=== PATIENT | male | born 1940 | race Caucasian/White ===

== ENCOUNTER 2017-04-20 15:00 | Inpatient (IN) | payer MEDICARE, BC ==
[~2017-04-20] VITALS: Ht 172.7 cm; Wt 67.0 kg
--- NOTE | ~2017-04-20 | CON ---
PATIENT'S NAME: AFUA ERAZO [facility] AGE: 76 Y [address] ROOM: [place] [address] LOCATION: [facility] ADMIT DATE: 04/20/2017 Consultation DISCHARGE DATE: FAMILY PHYSICIAN: Brian Aguayo MD ATTENDING PHYSICIAN: SERA RAYMUNDO REFERRING PHYSICIAN: Anyi Sung MD Consult for Dr. Raymundo. This pleasant 76-year-old gentleman who is referred for [facility] rehab evaluation, admitted on 04/20/2017, with history of falling, hitting his head. He probably lost his consciousness for may be 20 seconds or so. When he woke up, took him to the local emergency room next morning, he did not want to go to the emergency room the same day. He has slurred speech and some weakness on the left side. He had been evaluated at the local hospital. CT scan showed right-sided thalamic stroke. He has medical history of COPD and on 2 L of oxygen and at night 3 L of oxygen constant. Hypertension. Alcohol use. He drinks regularly at least 3 drinks a night of hard liquor. At the present time, he is alert and oriented. He tells me that he does not smoke anymore. Follows instructions well. No facial droop. No neglect. He does see well, but denied any visual difficulties. He has very little headache if any. No double vision. Attends to both sides of the visual field. Cranial nerves 2 through 12 are within normal limits. Tongue and soft palate are moving symmetrical. He has a little bit wobbly because of the weakness of the left lower extremity when he is not supported. Muscle strength is within normal limits on the right upper and lower extremity, about 4- on the left upper and lower extremity. Deep tendon reflexes are present and equal throughout. He has good bowel and bladder control. His speech is clear and not wet. VITAL SIGNS: Blood pressure 161/78, temperature 97.9, pulse 57, and respiration rate 18. He is 5 feet 8 inches tall and weighs 66.5 kg. PATIENT'S NAME: AFUA ERAZO [facility] AGE: 76 Y [address] ROOM: [place] [address] LOCATION: [facility] ADMIT DATE: 04/20/2017 Consultation DISCHARGE DATE: FAMILY PHYSICIAN: Brian Aguayo MD ATTENDING PHYSICIAN: SERA RAYMUNDO He is controlling his bowel and bladder well. MEDICATIONS: He is on the following medications. 1. Aspirin. 2. Lipitor. 3. Dulera. 4. Deltasone. 5. Tylenol. 6. Protonix. 7. Albuterol. ASSESSMENT AND PLAN: At the present time, he ambulated with a front-wheeled walker and oxygen at 3 L with nasal cannula following and he went up to 300 feet with minimum assistance and some cuing for guiding to turn. I feel this gentleman is doing well and he has shown good improvement. If he continues to do so he can go home. I will continue his PT and OT which has been already initiated. I would like him not to drive until he is reevaluated and not to operate any mechanical device until he is re-evaluated. I would like to see him on outpatient basis in my office in 2 weeks. All the above was explained to his . I had also requested him not to drink for the time being. Thank you for this referral. I will follow alongside with you and if he is not doing well to go home, I will re-evaluate for rehab admission. EL LOUIS MD WMS/modl /[id number] d: 04/21/17 1053 t: 04/22/17 0711, CONSULTATION REPORT
--- NOTE | ~2017-04-20 | ENPV ---
Carotid Duplex Study Demographics Patient Name AFUA ERAZO Date of Study 04/21/2017 Patient Number [id number] Gender Male Date of 1940 Age 76 Visit Number [id number] Height 68 Accession Number [id number] Weight 155 Referring Breanne Howard Interpreting Christiano Pruett MD Physician Physician Physician Ordering Breanne Howard Rolloff Driver Physician Galley Hand Marcos Mcdonald, Jj Roblero Conclusions Summary The Bilateral proximal internal carotid artery has mild, 1-39%, stenosis by heterogeneous plaque. The right vertebral artery is antegrade. The left vertebral artery is antegrade with an abnormal Doppler waveform. There is a >50% stenosis noted in the left subclavian artery. Procedure Type of Study: Cerebral:Carotid, Carotid Doppler Bilateral. Indications for Study:Stroke. Appropriate Use Criteria:9 Blood Pressure:Right arm 153/73 mmHg.Left arm 154/80 mmHg. Patient Status:Routine. Study Location:Inpatient Portable. Technical Quality:Adequate visualization. Velocities are measured in cm/s ; Diameters are measured in cm Carotid Right Measurements Carotid Left Measurements + +--------+--------+ + + + +--------+ --------+ + + !Location !PSV !EDV !Angle !%Stenosis ! !Location !PSV ! EDV !Angle !%Stenosis ! + +--------+--------+ + + + +--------+ --------+ + + !Prox CCA !102 !13 !48 ! ! !Prox CCA !142 ! 15 !60 ! ! + +--------+--------+ + + + +--------+ --------+ + + !Dist CCA !72 !10 !60 ! ! !Dist CCA !82 ! 13 !60 ! ! + +--------+--------+ + + + +--------+ --------+ + + !Prox ICA !49 !12 !58 !1-39% ! !Prox ICA !68 ! 16 !60 !1-39% ! + +--------+--------+ + + + +--------+ --------+ + + !Dist ICA !80 !19 !50 ! ! !Dist ICA !64 ! 12 !36 ! ! + +--------+--------+ + + + +--------+ --------+ + + !Prox ECA !128 ! !58 ! ! !Prox ECA !127 ! 14 !48 ! ! + +--------+--------+ + + + +--------+ --------+ + + !Vertebral !42 !10 !60 ! ! !Vertebral !44 ! 10 !60 ! ! + +--------+--------+ + + + +--------+ --------+ + + !Subclavian !110 ! ! ! ! !Subclavian !299 ! ! ! ! + +--------+--------+ + + + +--------+ --------+ + + - There is antegrade vertebral flow noted on the right side. - There is antegrade verte bral flow noted on the left side. - Add'l Measurements:ICAPSV/CCAPSV 0.78.ICAEDV/CCAEDV 1.49. - Add'l Measurements:ICAPS V/CCAPSV 0.48.ICAEDV/CCAEDV 1.07. Signature dtt: CALIXTO WILBURN dtniru: 04/21/17 0847 Physician Self Edit
--- NOTE | ~2017-04-20 | HP ---
PATIENT'S NAME: REINIER HAILE [facility] AGE: 76 Y [address] ROOM: [id number] [place] [address] LOCATION: [facility] ADMIT DATE: 04/20/2017 History & Physical DISCHARGE DATE: 04/22/2017 FAMILY PHYSICIAN: Brian Aguayo MD ATTENDING PHYSICIAN: Stefan Raymundo DATE OF SERVICE: The patient was referred by Sulaiman Oliveros of [facility]. REASON FOR REFERRAL: Stroke. PATIENT IDENTIFICATION: Mr. Reinier Haile is a 76-year-old gentleman. PRESENTING COMPLAINT: Confusion and slurred speech. HISTORY OF PRESENT ILLNESS: The patient began to complain of slurred speech around 10 p.m. on April 19, 2017. He was sitting in a chair and fell down hitting his head, followed by slurred speech and weakness on the left side of his body. He did not seek medical attention initially, but eventually, he presented to [facility] on the morning of April 20, 2017. The patient had a head CT scan performed, which showed a right thalamic stroke. I was contacted to accept the patient and transfer to a higher level of medical care. PAST MEDICAL HISTORY: Significant for 1. End-stage COPD. The patient is on 3 L of oxygen at home. 2. He also has hypertension. CURRENT MEDICATIONS: Please see chart. ALLERGIES: NO KNOWN DRUG ALLERGIES. SOCIAL HISTORY: The patient lives in [place] with his . He quit smoking in 1997. REVIEW OF SYSTEMS: A 10-point review of systems was carried out. The only abnormal findings are as described in the history of present illness. PATIENT'S NAME: REINIER HAILE [facility] AGE: 76 Y [address] ROOM: [id number] [place], [place] [address] LOCATION: [facility] ADMIT DATE: 04/20/2017 History & Physical DISCHARGE DATE: 04/22/2017 FAMILY PHYSICIAN: Brian Aguayo MD ATTENDING PHYSICIAN: Stefan Raymundo PHYSICAL EXAMINATION: On examination, VITAL SIGNS: Blood pressure was 180/82 and pulse rate was 72. NEUROLOGICAL: Speech is clear and lucid. Cranial Nerves: No facial droop was seen. Cranial nerves are otherwise normal. On motor examination, the patient has normal strength in all the major muscle groups of his upper and lower extremities bilaterally. Gait: Not tested. CARDIOVASCULAR SYSTEM: Heart sounds are present. RESPIRATORY SYSTEM: The patient is not short of breath at bedside. EXTREMITIES: No cyanosis or clubbing. SKIN: No skin rashes or skin masses. REVIEW OF IMAGING STUDIES: The patient has had a head CT performed in [place] on April 20, 2017. The head CT shows an 18 x 10 mm region of decreased density involving the right thalamus suspicious for an [id number] stroke. ASSESSMENT: A 76-year-old gentleman with confusion and slurred speech. Imaging studies show a right thalamic stroke. MEDICAL DECISION MAKING: The patient is being admitted for medical management. At this point, there is no indication for neurosurgical intervention. I have consulted the hospitalist to see the patient and assist with his medical management. Neurology will also be consulted to assist with the patient's management. I will follow the patient while he is in hospital. LABORATORY INVESTIGATIONS: Sodium was 140, potassium was 4.0, glucose was 125, BUN was 20, and creatinine was 0.95. White count is 12.4, hemoglobin is 15.5, and platelets are 233. MD REJI MCCANN/jocelyn /[id number] D: 311 T: 626 HISTORY & PHYSICAL
--- NOTE | ~2017-04-20 | CON ---
PATIENT'S NAME: AFUA HAILE [facility] AGE: 76 Y [address] ROOM: [id number] [place], [place] [address] LOCATION: GICU ADMIT DATE: 04/20/2017 Consultation DISCHARGE DATE: 04/22/2017 FAMILY PHYSICIAN: Brian Aguayo MD ATTENDING PHYSICIAN: Stefan Raymundo DATE OF CONSULTATION: 04/21/2017 REFERRING PHYSICIAN: Anyi Sung MD TIME SEEN: 7:00 p.m. HISTORY OF PRESENT ILLNESS: Mr. Haile is a 76-year-old male patient with a history of mild hypertension as well as gout and hyperlipidemia. The patient was a past smoker and has end- stage COPD, but otherwise has fairly good health practices and does not have necessarily active issues for stroke risk factors. The patient states that he developed slurring of speech and sudden onset of weakness on the 20 of April at 10:00 p.m., and the patient was also experiencing some subtle left-sided weakness as well as some mild numbness. Initially, presented to the hospital and CAT scan was performed, which showed evidence for a right-sided thalamic stroke and he was transferred to this hospital for further care. A MRI was done to back up the evidence for the stroke, and the MRI does show approximately 1.7 x 1.2 cm stroke located clearly into the right thalamic region. This is fed by penetrated branches off the right MCA distribution and likely is consistent with a large lacunar stroke. By the time I saw the patient, he was doing quite well. He had no focal weakness that I could notice. He did not have any trouble, problems with chewing or swallowing. At no time did he have any problem with identifying objects nor did he have any persistent slurring of speech and he had no language deficits. Denied any headaches. He denied any problems with shortness of breath or palpitations. He has remained on telemetry monitoring during the course of his stay here in the hospital of greater than 48 hours and no evidence of atrial fibrillation or any abnormalities or any arrhythmia has been seen. The patient has no complaints currently and is planning to complete rehab at his home. I discussed today the nature of the patient's lacunar stroke with the and we went through his current medications and I made some suggestions. PAST MEDICAL HISTORY: History of COPD, hypertension, hyperlipidemia. He is not on any hyperlipidemic medication prior to coming to this hospital. MEDICATIONS: Currently include, 1. Ipratropium bromide/albuterol 1 inhalation q.4 hours p.r.n. PATIENT'S NAME: AFUA HAILE [facility] AGE: 76 Y [address] [place]OM: [id number] [address] LOCATION: GICU ADMIT DATE: 04/20/2017 Consultation DISCHARGE DATE: 04/22/2017 FAMILY PHYSICIAN: Brian Aguayo MD ATTENDING PHYSICIAN: Stefan Raymundo 2. Multivitamin daily. 3. Lactobacillus 1 tablet p.o. daily. 4. Calcium carbonate 250 mg tablet daily. 5. Ascorbic acid 1000 mg daily. 6. Allopurinol 300 mg p.o. daily. 7. Fluticasone propionate spray to each nostril daily. 8. Aspirin started in this hospital 81 mg daily. 9. Atorvastatin 40 mg p.o. q.h.s. started in this hospital. 10. Prednisone 10 mg p.o. daily. 11. Latanoprost one drop in each eye ophthalmic solution daily. SOCIAL HISTORY: He is . He lives with his in [place]. He was transferred here from [facility] to our hospital upon his new stroke symptoms. He does not smoke cigarettes currently and quit back in 1997 where he was a multipack year smoker. He does imbibe alcohol approximately 3 hard liquors a day, shots of liquor a day according to the , but the denies that the patient has alcohol abuse. FAMILY HISTORY: Consistent with diabetes in the father. REVIEW OF SYSTEMS: CONSTITUTIONAL: This is a healthy-appearing male, in no acute distress. He has acute onset of left hemiparesis which was quite brief along with some numbness. His weakness is old but improved at this point, and he has nearly full power. He denied any visual field deficits or problems with chewing, swallowing. He denied any headache. An MRA of the brain shows no evidence of any focal stenosis in the intracranial blood vessels and carotid and vertebral arteries appeared to be patent. CARDIOVASCULAR: No history of known AL. No history of arrhythmia. He does have hyperlipidemia noted by elevation in his cholesterol into the 240s range. He has a slightly elevated LDL cholesterol 113. HDL was good at 62, triglyceride level was 347. Cholesterol level as mentioned was elevated, the number was 244. Troponin level was normal. CBC and basic metabolic panel were all within normal limits. A complete metabolic panel revealed normal platelet count and no evidence of any anemia. White count was normal. The patient does have a history of gout for which he is maintained on daily allopurinol and history of bilateral hand and wrist tendinitis for which he has been on chronic Mobic therapy at home daily basis greater than at least 2 years. He has history of mild hypertension. PHYSICAL EXAMINATION: GENERAL: This is a healthy-appearing male, slightly thin, but no acute distress, well nourished. His speech is clear. He answers all questions PATIENT'S NAME: AFUA HAILE [facility] AGE: 76 Y [address] [place]OM: [id number] [address] LOCATION: [facility] ADMIT DATE: 04/20/2017 Consultation DISCHARGE DATE: 04/22/2017 FAMILY PHYSICIAN: Brian Aguayo MD ATTENDING PHYSICIAN: Stefan Raymundo. He has somewhat poor insight into the medications that is on. He was not aware that he was taking a chronic anti-inflammatory pain medication like meloxicam on a daily basis. NEUROLOGIC: His language was normal. Cranial nerves 2 through 12 was intact. MUSCULOSKELETAL: His motor exam revealed 5/5 power in the upper and lower extremities proximally and distally. I did not appreciate any focal weakness in the left side which had been a presentation upon his admission. Rapid alternating hand movements perhaps were bit slow on the left hand. His gait was normal narrow based. Negative Romberg. Reflexes were intact +1 at the biceps, triceps, brachioradialis, patellar reflexes +1. Ankle jerk reflexes +1 and plantar reflexes downgoing. IMPRESSION: This is a 76-year-old male patient, does not seem to have a particular acute stroke risk factors as he had given up smoking quite a long time ago. He only has some mild hypertension that is well under control. I have to look at issues for the potential cardioembolic event such as from atrial fibrillation, but he has been monitored here in our hospital. No evidence of any arrhythmia was seen. Therefore, looking at his medications, I noted that he was taking meloxicam nonsteroidal anti-inflammatory on a daily basis. He seemed to have been taking this for some type of chronic tendinitis of his wrist. This medication is really for intermittent use only, seemed to have possibly used it in the past also when he had a gout attack. I recommended not using this medication at all. There was a definite heart attack and stroke risk or daily and prolonged use of this medication and quite frankly, based upon this being a subcortical-based stroke said by branches of the left MCA, the use of daily small meloxicam may have induced a higher risk for thrombosis. I recommended the use of acetaminophen if the patient requires a pain medication. Again, he was not aware that he was even using this as home medication until I informed him that this was on his list, then he remembered. All in all, the patient has made a very good recovery and based upon lacunar strokes they were often fully recoverable. His stroke risk factor recurrence is probably low if the patient can remove the meloxicam from his medication regimen. Furthermore, we have placed the patient on aspirin therapy for secondary stroke prevention. Furthermore, we have started the patient on Lipitor 40 mg daily for issues of stroke prevention and plaque stabilization as well as for his elevation in cholesterol. Since the patient is stable, he can follow up with his primary medical doctor in [place] though if he requires further follow up in Neurology could certainly see us in the Neurology office and I gave the patient a card to get in contact with us. The patient is stable for discharge home. VANIA DOUGLAS MD PATIENT'S NAME: AFUA HAILE [facility] AGE: 76 Y [address] ROOM: [id number] [place], [place] [address] LOCATION: GICU ADMIT DATE: 04/20/2017 Consultation DISCHARGE DATE: 04/22/2017 FAMILY PHYSICIAN: Brian Aguayo MD ATTENDING PHYSICIAN: Stefan Raymundo/jocelyn /[id number] d: 04/22/17 2244 t: 05/26/17 1510, CONSULTATION REPORT
--- NOTE | ~2017-04-20 | HP ---
PATIENT'S NAME: AFUA ERAZO [facility] AGE: 76 Y [address] ROOM: [place] [address] LOCATION: GICU ADMIT DATE: 04/20/2017 History & Physical DISCHARGE DATE: FAMILY PHYSICIAN: PHYSICIAN, UNKNOWN ATTENDING PHYSICIAN: SERA ZHONG DATE OF SERVICE: CHIEF COMPLAINT: Stroke. HISTORY OF PRESENT ILLNESS: This 76-year-old gentleman with a past medical history of end-stage COPD on 3 L of oxygen at home, presented to the local emergency department today with a chief complain of slurred speech and weakness which started actually last night around 10:00 p.m. He was sitting in a chair and fell down hitting his head, followed by slurred speech and weakness on the left side of the body. He did not seek medical attention at this point and presented to the hospital in the morning. Initially, a CAT scan was done, which did show right-sided thalamic stroke and he was transferred here for further medical care. On my encounter, he does not have any distress. He is answering questions appropriately. He does not have any complaints at this point. On inquiry, he denied any headache, any trouble with the eyes. He did say that his slurred speech has resolved by now and he does not feel weak anywhere in his body. He denied any trouble with the eyes, any trouble swallowing, any chest pain, any palpitation; but he does endorse that he has some shortness of breath, secondary to COPD. He denied any cough or any sputum production or changes in his sputum. Denied any abdominal pain, burning on urination, constipation, diarrhea, or extremity swelling. REVIEW OF SYSTEMS: All other systems reviewed and were negative, except what is mentioned in the HPI. ALLERGIES: NO KNOWN DRUG ALLERGIES. PAST MEDICAL HISTORY: COPD, hypertension. MEDICATIONS: Being reconciled right now. SOCIAL HISTORY: Quit smoking in 1997. Lives in [place] with . PATIENT'S NAME: AFUA ERAZO [facility] AGE: 76 Y [address] ROOM: [place] [address] LOCATION: GICU ADMIT DATE: 04/20/2017 History & Physical DISCHARGE DATE: FAMILY PHYSICIAN: PHYSICIAN, UNKNOWN ATTENDING PHYSICIAN: SERA ZHONG FAMILY HISTORY: Diabetes in father. PHYSICAL EXAMINATION: VITAL SIGNS: 180/82, 72, afebrile, saturating 95% on 3 L of oxygen, respiratory rate of 16. GENERAL: No acute distress. Alert and oriented x3. HEENT: Head: Atraumatic, normocephalic. Eyes: Nonicteric. No pallor. Oropharynx: Moist mucous membranes. CARDIOVASCULAR: S1, S2. No murmurs, gallops, or rubs. LUNGS: Clear to auscultation bilaterally. ABDOMEN: Soft, nontender, and nondistended. Bowel sounds present. EXTREMITIES: No clubbing, cyanosis, or edema. PSYCHIATRIC: Normal affect, mood, and speech. NEUROLOGIC: Cranial nerves 2 through 12 intact. No motor or sensory deficit. SKIN: Multiple bruises noted. No dryness or blemishes. MUSCULOSKELETAL: No muscle tenderness or joint swelling noted. LYMPHATICS: No lymphadenopathy or lymphangitis noticed. LABORATORY AND DIAGNOSTIC DATA: CT scan from the outside facility showed right thalamic stroke. Lab work was also reviewed from the outside facility including a CBC and BMP and were unremarkable. ASSESSMENT AND PLAN: 1. Acute right thalamic ischemic stroke. 2. Chronic obstructive pulmonary disease. 3. Chronic respiratory failure with 3 L of oxygen. 4. Hypertension. PLAN: We are going to admit this patient to our lower level ICU. Aspirin and Lipitor will be administered. EKG and echocardiography have been ordered. The patient will undergo MRI as well as Dopplers of the carotids. Neurology consultation will be obtained. Rest of the stroke protocol will be followed. SCDs for DVT prophylaxis for now. The patient is full code. MD NAFISA XAVIER/jocelyn PATIENT'S NAME: AFUA ERAZO [facility] AGE: 76 Y [address] ROOM: [id number] [place], [place] [address] LOCATION: [facility] ADMIT DATE: 04/20/2017 History & Physical DISCHARGE DATE: FAMILY PHYSICIAN: PHYSICIAN, UNKNOWN ATTENDING PHYSICIAN: SERA ZHONG /[id number] D: [id number] T: [id number] HISTORY & PHYSICAL
--- NOTE | ~2017-04-20 | ECHO ---
Transthoracic Echocardiography Report (TTE) Demographics Patient Name AFUA ERAZO Date of Study 04/21/2017 Patient Number [id number] Visit Number [id number] Date of 1940 Room Number [id number] Accession Number [id number] Gender Male Age 76 year(s) Referring Breanne Howard Dye Can Operator Mery Cordoba RVT Physician Physician Interpreting Paul Moise MD Veterinary Inspector Physician Supervising Ordering Physician Breanne Howard MD/YVONNE HENAO Nurse Stress Geophysical Laboratory Director Conclusions Contractility Score Summary Normal Left Ventricular contractility was noted. Summary The estimated left ventricular ejection fraction is 55-60%. Diastolic assessment reveals Grade I diastolic dysfunction. The left ventricle is normal in size . Negative bubble study. Mild calcification of the mitral valve. Trivial mitral regurgitation by color Doppler. The aortic valve is mildly sclerotic. Visualized portions of the aortic root and ascending aorta appear normal in size. Patient is noted to be in normal sinus rhythm and no echo densities noted to suggest thrombus Procedure Type of Study TTE procedure:2D Echocardiogram. Procedure Date Date: 04/21/2017 Start: 09:25 AM Study Location: Inpatient Portable Technical Quality: Fair Appropriate Use Criteria: 9 Patient Status: Routine HR: 61 bpm BP: 153/73 mmHg M-Mode/2D Measurements LV Diastolic Dimension: 3.94 cm LV Systolic Dimension: 2.73 cm Cardiac Output: 2.76 l/min AO Root Dimension: 2.4 cm LA Dimension: 2.7 cm EF Estimated: 60 % LVOT: 2 cm RV Base: 2.8 cm LVOT VTI: 14.4 cm RV Mid: 2.2 cm LV Stroke volume: 45.22 ml TAPSE: 2.4 cm TDI-S': 14 cm/s Doppler Measurements AV Peak Velocity: 1.08 m/s MV Peak E-Wave: 0.45 m/s AV Peak Gradient: 4.67 mmHg MV Peak A-Wave: 0.54 m/s AV Mean Gradient: 2 mmHg MV E/A Ratio: 0.83 LVOT Peak Velocity: 0.67 m/s MV P1/2t: 110 msec E' Septal Velocity: 0.07 m/s A' Septal Velocity: 0.1 m/s E' Lateral Velocity: 0.1 m/s A' Lateral Velocity: 0.15 m/s Findings Left Ventricle Diastolic assessment reveals Grade I diastolic dysfunction. The left ventricle is normal in size . Mild concentric left ventricular hypertrophy. Right Ventricle Normal right ventricle structure and function. Left Atrium Normal left atrial size. Right Atrium Normal right atrial size. Negative bubble study. Mitral Valve Mild calcification of the mitral valve. Trivial mitral regurgitation by color Doppler. Aortic Valve The aortic valve is mildly sclerotic. Tricuspid Valve Normal appearing tricuspid valve. Pulmonic Valve Normal pulmonic valve structure and function. Pericardial Effusion No evidence of pericardial effusion. Miscellaneous Visualized portions of the aortic root and ascending aorta appear normal in size. Patient is noted to be in normal sinus rhythm and no echo densities noted to suggest thrombus Pleural Effusion No evidence of pleural effusion. Contractility Score LV regional wall motion:(0-Non visualized 1-Normal 2-Hypokinesis 3-Akinesis 4-Dyskinesis 5-Aneurysm) Signature dtt: Jose Maria Miller (cardio) dtd: 04/21/17 0925 Physician Self Edit
--- NOTE | ~2017-04-20 | DS ---
PATIENT'S NAME: AFUA ERAZO [facility] AGE: 76 Y [address] ROOM: [id number] [place], [place] [id number] LOCATION: GICU ADMIT DATE: 04/20/2017 Discharge Summary DISCHARGE DATE: 04/22/2017 FAMILY PHYSICIAN: Brian Aguayo MD ATTENDING PHYSICIAN: Stefan Raymundo DISCHARGE DIAGNOSES: 1. Right thalamic acute ischemic cerebrovascular accident. 2. Chronic hypoxic respiratory failure secondary to chronic obstructive pulmonary disease. 3. Essential hypertension. 4. Glaucoma. 5. Gastroesophageal reflux disease. 6. Constipation. 7. Alcohol use. HOSPITAL COURSE: Please refer to admitting history and physical as dictated by Dr. Raymundo. Briefly, the patient was admitted to [facility] with left-sided weakness. Outside facility CT scan did show evidence of a right acute thalamic stroke. MRI was performed at [facility], which did show an acute ischemic infarct in the right thalamus. A small benign right posterior parietal meningioma, a small right hippocampal cyst. He was placed on the stroke protocol. He was started on Lipitor 40 mg p.o. daily and a baby aspirin. Dr. Craven did see the patient. He felt as though he was not a candidate for inpatient rehab. His left-sided weakness had improved. 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 MRI of the brain was performed, which was normal. Lipid panel showed total cholesterol of 244, triglycerides 347, LDL of 113. His home Norvasc and Coreg were held. His O2 requirements were stable. Echocardiogram showed an EF of 55% to 60%. Grade 1 diastolic dysfunction. Mild calcification of the mitral valve and mildly sclerotic aortic valve. PT, OT, and ST all evaluated the patient during his stay. It was recommended that he could be discharged to home with outpatient PT and OT. On 04/22/2017, the patient's vital signs were stable. Dr. Monge with Neurology did see the patient. He recommended to DC his meloxicam as it can increase risk of thrombus. It is also recommended that he follow up with his primary care provider to consider an event monitor for approximately 4 weeks to rule out an arrhythmia. The patient's Coreg can be resumed upon discharge. It was recommended that he continue to hold his Norvasc until followup with Dr. Aguayo. On 04/22/2017, the patient's vital signs were stable. He was up ambulatory with a cane. He had no noted left-sided weakness. It was felt as though he was safe to be discharged. Follow up with Dr. Aguayo in 3-5 days. Follow up with Dr. Craven in 2 weeks. PATIENT'S NAME: AFUA ERAZO [facility] AGE: 76 Y [address] ROOM: [id number] [place], [place] [address] LOCATION: [facility] ADMIT DATE: 04/20/2017 Discharge Summary DISCHARGE DATE: 04/22/2017 FAMILY PHYSICIAN: Brian Aguayo MD ATTENDING PHYSICIAN: Stefan Raymundo LABORATORY DATA: Sodium 142, potassium 4.0, chloride 105, glucose 137, BUN 19, creatinine 1.0. Total cholesterol 244, triglycerides 347, HDL 62, LDL 113. Troponin less than 0.040. WBCs 8.2, hemoglobin 14.1, hematocrit 41.4, and platelets 195. RADIOLOGY REPORTS: Please refer to hospital course. DISCHARGE INSTRUCTIONS: The patient will be discharged to home. DIET: Regular. ACTIVITY: As tolerated with cane. FOLLOWUP: Followup appointment with Dr. Craven in 2 weeks. Follow up with Dr. Aguayo in 3-5 days. No driving until re-evaluated. Do not operate heavy mechanical devices. LFTs in 6 weeks. No alcohol. Outpatient PT and OT to evaluate and treat as indicated. Outpatient consideration of extended monitoring coordinator as per Dr. Aguayo. DISCHARGE MEDICATIONS: 1. Allopurinol 300 mg p.o. daily. 2. Ascorbic acid 1000 mg p.o. daily. 3. Aspirin 81 mg p.o. daily. 4. Lipitor 40 mg p.o. daily. 5. Multivitamin one tablet p.o. daily. 6. Prilosec 20 mg p.o. daily. 7. Prednisone 10 mg p.o. daily. 8. Travatan ophthalmic solution 1 drop every day in both eyes. 9. Combivent 2 puffs every 4 hours p.r.n. shortness of breath. 10. Advair 250 mcg twice daily p.r.n. shortness of breath. 11. Hold Norvasc until appointment with Dr. Aguayo. 12. Tylenol 650 mg p.o. every 4 hours as needed for pain. 13. Os-Stan 250 with D 1 tablet p.o. daily. 14. Coreg 3.125 mg p.o. twice daily. 15. Fish oil 1000 mg p.o. daily. 16. Flonase 1 spray for nasal congestion p.r.n. 17. MSM 1000 mg p.o. daily. 18. Probiotic 1 capsule p.o. daily. 19. Simbrinza one drop ophthalmic 3 times daily. 20. Oxygen as per nasal cannula. Thank you for allowing us to participate in the care of this patient as he has been hospitalized at [facility]. PATIENT'S NAME: AFUA ERAZO [facility] AGE: 76 Y [address] ROOM: [place] [address] LOCATION: GICU ADMIT DATE: 04/20/2017 Discharge Summary DISCHARGE DATE: 04/22/2017 FAMILY PHYSICIAN: Brian Aguayo MD ATTENDING PHYSICIAN: Stefan Raymundo SABINA PAREDES APRN FOR MD SAYDA POSEY/modl /[id number] d: 04/23/17 0340 t: 04/29/17 1115, DISCHARGE SUMMARY
--- NOTE | 2017-04-20 17:00 | NUR ---
Pt is 76 y/o male admit for weakness,fall,possible stroke for . Pt alert and oriented x3. Resides at home with his . Came via ambulance from [facility]. hx htn,COPD,SOB w exertion,OA R)shoulder,back,neck,gerd,heartburn, nocturia,urgency. Pt states last evening he was sitting on the edge of a chair in the kitchen and slid off, hitting the floor hard. He states he felt weak and was slurring and mumbling his words. He reports his just thought he'd had too much alcohol to drink, but he admits to only 2 drinks before he fell. He usually consumes three ETOH drinks each night, 7 days per week. His children came over and helped him to bed but insisted he go to ED today to be checked out.
[2017-04-20] MEDS ORDERED: ZYLOPRIM300 MG PO (20:35)
[2017-04-20] MEDS ORDERED: NORVASC10 MG PO (20:36)
[2017-04-20] MEDS ORDERED: OS-CAL 250 MG+D1 TAB PO (20:40)
[2017-04-20] MEDS ORDERED: COMBIVENT RESPIM4 GM INH (20:41)
[2017-04-20] MEDS ORDERED: FISH OIL 1,0001 EACH PO (20:42)
[2017-04-20] MEDS ORDERED: COREG 3.1253.125 MG PO (20:42)
[2017-04-20] MEDS ORDERED: MOBIC15 MG PO (20:43)
[2017-04-20] MEDS ORDERED: FLONASE 50 MCG/16 GM NOSE (20:43)
[2017-04-20] MEDS ORDERED: MSM1000 MG PO (20:44)
[2017-04-20] MEDS ORDERED: MEN'S MULTI-VI1 EACH PO (20:45)
[2017-04-20] MEDS ORDERED: NAPROXEN SODIU550 MG PO (20:46)
[2017-04-20] MEDS ORDERED: PRILOSEC20 MG PO (20:47)
[2017-04-20] MEDS ORDERED: PROBIOTIC1 EAC1 PO (20:48)
[2017-04-20] MEDS ORDERED: SIMBRINZA 1%-0.28 ML OPHTH (20:49)
[2017-04-20] MEDS ORDERED: TRAVATAN Z OPH2.5 ML OPHTH (20:51)
[2017-04-20] MEDS ORDERED: VIAGRA100 MG PO (21:03)
[2017-04-20] MEDS ORDERED: ASCORBIC ACID500 MG PO (21:04)
[2017-04-20] MEDS ORDERED: OXYGEN M-15 NS (21:08)
[2017-04-20] MEDS ORDERED: ADVAIR 250-501 EACH INH (21:09)
--- NOTE | 2017-04-21 04:46 | NUR ---
Significant Event: A0X3. PUPILS 2MM/BRISK. NIHSS=1. VSS ON 1L . IV TO R)AC, SALINE LOCKED. VASELINE GAUZE/GAUZE DRSGs TO L)ELBOW AND L)WRIST COVERING SKIN TEARS FROM HIS FALL AT HOME. VOIDS PER BATHROOM OR URINAL. 1 ASSIST. PT STATED HE DRINKS 3 ALCOHOLIC BEVERAGES A DAY, MONITORING FOR SUBSTANCE WITHDRAWAL. NO S/S NOTED THUS FAR. Follow up:
[2017-04-21] MEDS ORDERED: ASCORBIC ACID500 MG PO (05:19)
[2017-04-21] MEDS ORDERED: OXYGEN M-15 (05:21)
[2017-04-21] MEDS ORDERED: DELTASONE10 MG PO (05:22)
--- NOTE | 2017-04-21 08:39 | NUR ---
POSSIBLE STROKE. ROUTINE DIET ED ORDER NOTED. WILL COMPLETE DIET ED APPROPRIATE PRIOR TO DISMISSAL.
--- NOTE | 2017-04-21 12:03 | NUR ---
Introduced self and role of care management to patient's sister as he is down for a MRI. She states that he lives in [place] with his . He is normally able to do all his own ADL's. I explained that it is too early to know what his discharge needs will be. Will continue to follow.
--- NOTE | 2017-04-21 14:48 | NUR ---
Speech Tx Note: Orders rec'd, Chart rev'd; Attempted x5 to initiate evaluation. Pt unavailable due to MRI, and OT/PT conflicts. Will attempt to initiate in AM. Thank you for this referral. Anna Medina M.A. JUANY-TEST LEAD
--- NOTE | 2017-04-21 16:44 | NUR ---
Significant Event: Follow up: 76 year old male admitted 04/20/17 from [facility] with right sided thalmic stroke. History of COPD and HTN. Slightly anxious, especially during activity. Good appetite. Ate 100% breakfast and lunch. On cardiac diet. No issues with swallowing. Alert and oriented x3. Left sided weakness. Denies any numbness/tingling. Worked with PT and OT. PRN duoneb changed to ever 4 hours. 1 assist with gait belt and cane. Shortness of breath with activity. Showered this afternoon. Started shift on 1L of O2, currently at 3L. Oxygen Saturation in mid 90's. Many visitors today. IV infiltrated this am. New IV starteed in left AC before MRI. MRI with and without contrast this am. MRA ordered...this evening?
--- NOTE | 2017-04-22 05:53 | NUR ---
Significant Event: A/Ox3. VSS. 130-150s SBP and other VSS on 3L O2 NC. Ambulates 1 assist with cane. NIHSS 0. Accuchecks discontinued. Follows all commands without difficulty and denies numbness or tingling. MRA today and R)AC saline locked. Requested Tylenol x1 for neck pain with relief noted. at bedside. Follow up: MRA
[2017-04-22 06:42] LABS: BASOPHIL # 0.1 K/uL (0.0-0.2); BASOPHIL % 0.8 %; EOSINOPHIL # 0.2 K/uL (0.0-0.5); EOSINOPHIL % 2.3 %; HEMATOCRIT 41.4 % (37.0-53.0); HEMOGLOBIN 14.1 g/dL (11.0-16.0); IMMATURE GRANULOCYTE # 0.1 K/uL (0.0-0.3); IMMATURE GRANULOCYTE % 0.6 %; LYMPHOCYTE # 1.2 K/uL (0.8-4.0); LYMPHOCYTE % 14.3 %; MCH 33.4 pg (27.0-34.0); MCHC 34.1 gm/dL (32.0-36.5); MCV 98.1 fl (83.0-98.0); MONOCYTE # 0.9 K/uL (0.0-1.0); MONOCYTE % 10.3 %; MPV 9.6 fl (9.4-12.4); NEUTROPHIL # (ANC) 6.2 K/uL (1.4-9.0); NEUTROPHIL % 71.7 %; NRBC % 0 /100WBC (0-0.00); PLATELET COUNT 195 K/uL (150-450); RBC 4.22 M/uL (3.50-5.50); RDW-CV 13.2 % (11.9-14.6); WBC 8.6 K/uL (4.0-11.0)
[2017-04-22 06:55] LABS: CALCIUM 8.9 mg/dL (8.5-10.5)
--- NOTE | 2017-04-22 11:56 | NUR ---
Introduced self and role of care management to patient and his . They live in [place]. He states that he is able to do all his own ADL's. His will be available to assist as needed. He does have a cane available at home to use if needed. I explained that the STAFF AIR DEFENSE OFFICER had written scripts for outpatient therapies so when she gets [place] home she will just need to call one of the therapy companies in [place] to set up outpatient therapy. She verballized understanding. They are planning on returning home on discharge. They deny any needs at this time. Will continue to follow.
--- NOTE | 2017-04-22 12:31 | NUR ---
VISITED PT FOR DIET EDUCATION PER STROKE PROTOCOL. ACUTE ISCHEMIC INFARCT RIGHT THALAMUS. PRESENT DURING VISIT. NO ISSUE WITH SWALLOWING, INTAKE 75-100%. PT FALL ASLEEP QUICKLY DURING EDUCATION SESSION BUT ABLE TO FOLLOW EDUCATION. REVIEWED LOW SODIUM AND LOW FAT DIET EDUCATION MATERIAL WITH AND PATIENT. REVIEWED DIET AT HOME AND PROVIDED ALTERNATIVE FOOD CHOICES. DISCUSSED GROCERY, COOKING AND SNACKING TIPS. BOTH ASKED APPROPRIATE QUESTIONS. LEFT DIET EDUCATION MATERIAL AND CONTACT INFORMATION WITH .
--- NOTE | 2017-04-22 14:47 | NUR ---
Significant Event: a/o x 3. denies pain. NIHSS=0. Ambulates with single point cane with right hand and gait belt. gait slightly unsteady. 2 liters of oxygen continuously during day and 3 liters of oxygen at night per home. Cardiac diet. takes meds whole. Did have reported bowel movement today and voids without difficulty. Plan- discharge to home today with holter monitor.
[2017-04-22] MEDS ORDERED: TYLENOL325 MG PO (16:16)
[2017-04-22] MEDS ORDERED: ASPIRIN (CHILDR81 MG PO (16:30)
[2017-04-22] MEDS ORDERED: LIPITOR40 MG PO (16:32)
== END 2017-04-22 17:00 | disposition disaster alternative care site (69) | DRG 65 ==
LOC: GICU 15:55
PROVIDERS: Nurse Practitioner Family; ADMIT Neurological Surgery
DX: I63.211 Cerebral infarction due to unspecified occlusion or stenosis of right vertebral artery (principal); G81.94 Hemiplegia, unspecified affecting left nondominant side; J96.11 Chronic respiratory failure with hypoxia; Z99.81 Dependence on supplemental oxygen; J44.9 Chronic obstructive pulmonary disease, unspecified; I10 Essential (primary) hypertension; Z87.891 Personal history of nicotine dependence; K21.9 Gastro-esophageal reflux disease without esophagitis; H40.9 Unspecified glaucoma; K59.00 Constipation, unspecified; M10.9 Gout, unspecified; E78.5 Hyperlipidemia, unspecified; F10.10 Alcohol abuse, uncomplicated; R47.81 Slurred speech
CPT/HCPCS: J7512